=== PATIENT | male | born 1955 | race Caucasian/White ===

== ENCOUNTER 2017-08-29 08:18 | Day surgery (SDC) | payer OTHER ==
[~2017-08-29] VITALS: Ht 165.1 cm; Wt 76.2 kg
[2017-08-29 10:28] VITALS: Ht 165.1 cm; Wt 76.2 kg
[2017-08-29] MEDS ORDERED: ASPI81TA3 PO (10:33)
[2017-08-29] MEDS ORDERED: METFORMIN (10:33)
[2017-08-29] MEDS ORDERED: CHOLESTEROL MED (10:33)
[2017-08-29 10:53] VITALS: BP 138/76; PULSE 60; RESP 15
--- NOTE | 2017-08-29 11:16 | OPPN ---
Date/Time of Note Date/Time of Note DATE: 08/29/17 TIME: 11:15 Operative Report Preoperative Diagnosis Screening Postoperative Diagnosis Internal hemorrhoids No colon neoplasm was identified Operation/Procedure Performed Colonoscopy Surgeon see signature line press assistant and feeder None Anesthesia: moderate sedation Estimated blood loss: none Transfusion Required none Specimen None Grafts/Implants none Complications none ANTON TREVIZO MD Aug 29, 2017 11:16
--- NOTE | 2017-08-29 11:16 | OPPN ---
Date/Time of Note Date/Time of Note DATE: 08/29/17 TIME: 11:15 Operative Report Preoperative Diagnosis Screening Postoperative Diagnosis Internal hemorrhoids No colon neoplasm was identified Operation/Procedure Performed Colonoscopy Surgeon see signature line physical laboratory assistant None Anesthesia: moderate sedation Estimated blood loss: none Transfusion Required none Specimen None Grafts/Implants none Complications none ANTON TREVIZO MD Aug 29, 2017 11:16
--- NOTE | 2017-08-29 11:16 | OPPN ---
Date/Time of Note Date/Time of Note DATE: 08/29/17 TIME: 11:15 Operative Report Preoperative Diagnosis Screening Postoperative Diagnosis Internal hemorrhoids No colon neoplasm was identified Operation/Procedure Performed Colonoscopy Surgeon see signature line benefits assistant None Anesthesia: moderate sedation Estimated blood loss: none Transfusion Required none Specimen None Grafts/Implants none Complications none ANTON TREVIZO MD Aug 29, 2017 11:16
[2017-08-29] MEDS ORDERED: MIDAZOLAM 1 MG/ML 2 ML INJ ONE (11:17)
[2017-08-29] MEDS ORDERED: FENTAnyl 50 MCG/ML VIAL ONE (11:17)
[2017-08-29 11:37] VITALS: BP 119/77; RESP 20
--- NOTE | 2017-08-30 06:23 | GILP ---
DATE OF PROCEDURE: NAME OF PROCEDURES: Colonoscopy. SURGEON: Harpal Koenig MD PREOPERATIVE DIAGNOSIS: Screening colonoscopy. POSTOPERATIVE DIAGNOSES: 1. Colonoscopy all the way to the cecum. 2. Internal hemorrhoids. 3. No colon neoplasm was identified. INDICATION FOR THE PROCEDURE: Mr. Yusuf Orielly is a 62-year-old male patient who was scheduled f or screening colonoscopy. The procedure and possible complications are well explained to the patient, he understood and consen mookie to the procedure. DESCRIPTION OF PROCEDURE: Under the influence of fentanyl and Versed, the colonoscope was carefully introduced in the rectum and under direct vision, it was advanced all the way to the cecum. FINDINGS: The patient had internal hemorrhoids. No colon neoplasm was identified. He tolerated the procedure very well and there was no complication from the procedure. At the end o f the procedure, he was awake with stable vital signs and he was discharged home to the care of his family. IMPRESSION: Please see postoperative diagnoses. PLAN: Next screening colonoscopy in 10 years. Dictated By: HARPAL MENDOZA/VILMA Conf#: [id number] DID#: [id number]
== END 2017-08-29 21:05 | disposition home or self-care (01) ==
LOC: GIL 08:18
PROVIDERS: ATTEND Internal Medicine Gastroenterology
DX: Z12.11 Encounter for screening for malignant neoplasm of colon (principal); K64.8 Other hemorrhoids; E11.9 Type 2 diabetes mellitus without complications; E78.5 Hyperlipidemia, unspecified
CPT/HCPCS: 45378; 82962; J2250; J3010; Z7610